=== PATIENT | female | born 1955 | race Caucasian/White ===

== ENCOUNTER 2024-01-07 00:31 | Emergency (ER) | payer OTHER, MEDICARE ==
--- OUTSIDE RECORDS SUMMARY | 2024-01-07 00:34 | XMS REPORT | Continuity of Care Document ---
Author Name Unknown Address [address] [place] [address] th[address] Address [address] [facility] 1 [address] [place] [address] Care Team Providers Care Frame Builder Name Role Phone [email or web address] Attending Clinician Unavail able [email or web address] Admitting Clinician Unavail able Payers Payer Name Policy Type Policy Number Effective Date Expirati on Date Source [place]IC[place]: [employer] [id number] 2018 00:00:00 [employer] [id number] 2018 00:00:00 Encounters Start Date/Time End Date/Time Encounter Type Admission Type Attending Clinicians Care Facility Care Department Encounter ID Source 2023-05-18 00:00:00 2023-05-18 00:00:00 Outpatient [email or web address] [facility] [id number] [facility]
[2024-01-07] MEDS ORDERED: CIPROFLOXACIN HCL 500 MG TAB ONE (01:08)
[2024-01-07] MEDS ORDERED: PHENAZOPYRIDINE 100MG TAB PO ONE (01:08)
[2024-01-07] MEDS ORDERED: CEFTRIAXONE 1000 MG/VIAL ONE (01:08)
[2024-01-07] MEDS ORDERED: LIDOCAINE 1% 20 ML MDV ONE (01:09)
--- NOTE | 2024-01-07 01:41 | EDPHYS ---
Physician Documentation [facility] Name: Darline Mclaughlin Age: 68 yrs Sex: Female : 1955 Arrival Date: 01/07/2024 Time: 00:31 Bed 13 Private MD: Juan Aranda HPI: 01/06 01:28 This 68 yrs old Female presents to ER via Ambulatory with complaints of rafita POSSIBLE UTI. 01:28 The patient presents with urinary symptoms, dysuria, frequency, hematuria, urgency. rafita Onset: The symptoms/episode began/occurred 2 day(s) ago. Modifying factors: The symptoms are alleviated by nothing, the symptoms are aggravated by urinating. Associated signs and symptoms: The patient has no apparent associated signs or symptoms. Severity of symptoms: At their worst the symptoms were mild, in the emergency department the symptoms are unchanged. The patient is sexually active, reportedly has a single partner. The patient has experienced similar episodes in the past, several times. Historical: - Allergies: 00:50 No Known Allergies; lg3 - Home Meds: 00:50 levothyroxine oral [Active]; Nexium Oral [Active]; rosuvastatin oral [Active]; Plavix lg3 Oral [Active]; - PMHx: 00:50 Hypothyroidism; TIA; high cholesterol; lg3 - PSHx: 00:50 Thyroidectomy; Total abdominal hysterectomy; lg3 - Immunization history:: Adult Immunizations up to date. - Infectious Disease History:: Denies. - Social history:: Smoking status: Patient denies any tobacco usage or history of. Patient uses alcohol, occasionally. - Family history:: not pertinent. ROS: 01:28 Constitutional: Negative for fever, chills, and weight loss, Eyes: Negative for injury, rafita pain, redness, and discharge, ENT: Negative for injury, pain, and discharge, Neck: Negative for injury, pain, and swelling, Cardiovascular: Negative for chest pain, palpitations, and edema, Respiratory: Negative for shortness of breath, cough, wheezing, and pleuritic chest pain, Back: Negative for injury and pain, : Negative for injury, bleeding, discharge, and swelling, MS/Extremity: Negative for injury and deformity, Skin: Negative for injury, rash, and discoloration, Neuro: Negative for headache, weakness, numbness, tingling, and seizure, Psych: Negative for depression, anxiety, suicide ideation, homicidal ideation, and hallucinations, Allergy/Immunology: Negative for hives, rash, and allergies, Endocrine: Negative for neck swelling, polydipsia, polyuria, polyphagia, and marked weight changes, Hematologic/Lymphatic: Negative for swollen nodes, abnormal bleeding, and unusual bruising, Abdomen/GI: Negative for abdominal pain, Back: Negative for injury or acute deformity, decreased range of motion, pain at rest, pain with movement, : Positive for urinary symptoms, flank pain, urinary frequency, small amounts, burning with urination, Exam: Constitutional: This is a well developed, well nourished patient who is awake, alert, rafita and in no acute distress. Head/Face: Normocephalic, atraumatic. Eyes: Pupils equal round and reactive to light, extra-ocular motions intact. Lids and lashes normal. Conjunctiva and sclera are non-icteric and not injected. Cornea within normal limits. Periorbital areas with no swelling, redness, or edema. ENT: Nares patent. No nasal discharge, no septal abnormalities noted. Tympanic membranes are normal and external auditory canals are clear. Oropharynx with no redness, swelling, or masses, exudates, or evidence of obstruction, uvula midline. Mucous membranes moist. Neck: Trachea midline, no thyromegaly or masses palpated, and no cervical lymphadenopathy. Supple, full range of motion without nuchal rigidity, or vertebral point tenderness. No Meningismus. Chest/axilla: Normal chest wall appearance and motion. Nontender with no deformity. No lesions are appreciated. Cardiovascular: Regular rate and rhythm with a normal S1 and S2. No gallops, murmurs, or rubs. Normal PMI, no JVD. No pulse deficits. Respiratory: Lungs have equal breath sounds bilaterally, clear to auscultation and percussion. No rales, rhonchi or wheezes noted. No increased work of breathing, no retractions or nasal flaring. Abdomen/GI: Soft, non-tender, with normal bowel sounds. No distension or tympany. No guarding or rebound. No evidence of tenderness throughout. Back: No spinal tenderness. No costovertebral tenderness. Full range of motion. Skin: Warm, dry with normal turgor. Normal color with no rashes, no lesions, and no evidence of cellulitis. MS/ Extremity: Pulses equal, no cyanosis. Neurovascular intact. Full, normal range of motion. Neuro: Awake and alert, GCS 15, oriented to person, place, time, and situation. Cranial nerves II-XII grossly intact. Motor strength 5/5 in all extremities. Sensory grossly intact. Cerebellar exam normal. Normal gait. Psych: Awake, alert, with orientation to person, place and time. Behavior, mood, and affect are within normal limits. Vital Signs: 00:45 BP 163 / 69; Pulse 78; Resp 16; Temp 99.3; Pulse Ox 100% on R/A; Weight 58.51 kg; lc8 Height 5 ft. 3 in. ; 02:00 BP 153 / 74; Pulse 78; Resp 17; Pulse Ox 100% ; lc8 00:45 Body Mass Index 22.85 (58.51 kg, 160.02 cm) 8 MDM: 00:[address] [facility] 01:35 Differential diagnosis: kidney stone, nonspecific abdominal pain, urinary tract rafita infection. Data reviewed: vital signs, nurses notes, lab test result(s). Consideration of Admission/Observation Escalation of care including admission/observation considered. I considered the following discharge prescriptions or medication management in the emergency department Medications were administered in the Emergency Department. See MAR. Test considered but Not performed: Labs: no labs , no ct. Historians other than the Patient: Spouse/Significant Other: well informed. Care significantly affected by the following chronic conditions: tia, high chlesterol, hypothyroid. Counseling: I had a detailed discussion with the patient and/or guardian regarding the historical points, exam findings, and any diagnostic results supporting the discharge/admit diagnosis, lab results, the need for outpatient follow up, for definitive care, a family practitioner. 01/06 00:48 Order name: Urinalysis w/ reflexes; Complete Time: 02:09 rafita 01/06 00:48 Order name: Urine Culture rafita Administered Medications: 01:16 Drug: Ciprofloxacin PO 500 mg PO once Route: PO; 8 01:45 Follow up: Response: No adverse reaction [facility] :17 Drug: Rocephin (cefTRIAXone) IM 1 grams IM once Route: IM; Site: Ventrogluteal RIGHT; 8 :45 Follow up: Response: No adverse reaction lc8 01:17 Drug: Phenazopyridine PO 200 mg PO once Route: PO; lc8 01:45 Follow up: Response: No adverse reaction lc8 01:53 Drug: Cefdinir PO 300 mg PO once Route: PO; lc8 01:57 Follow up: Response: No adverse reaction lc8 Disposition Summary: 01/07/24 01:40 Discharge Ordered Notes: Location: Home [facility] Problem: new rafita Symptoms: have improved rafita Condition: Stable rafita Diagnosis - UTI/ Urinary tract infection, site not specified rafita - Dysuria rafita Followup: rafita - With: Private Physician - When: 2 - 3 days - Reason: Recheck today's complaints, Continuance of care, Re-evaluation by your physician Discharge Instructions: - Discharge Summary Sheet rafita - Dysuria rafita - Urinary Tract Infection, Adult rafita - Urinary Tract Infection, Adult, [id number] [facility] Forms: - Medication Reconciliation Form rafita - Antibiotic Education rafita - Prescription Opioid Use rafita - Patient Portal Instructions rafita - Leadership Thank You Letter [facility] Prescriptions: - cefdinir 300 mg Oral capsule - take 1 capsule ORAL route 2 times per day; 14 capsule; Refills: 0, Product rafita Selection Permitted - Cipro 250 mg Oral tablet - take 1 tablet ORAL route every 12 hours; 10 tablet; Refills: 0, Product rafita Selection Permitted - Pyridium 200 mg Oral Tablet - take 1 tablet ORAL route every 8 hours for 3 days; 9 tablet; Refills: 0, [facility] Product Selection Permitted Signatures: Dispatcher [employer] EDJuan Ibrahim MD MD cha Able, Lacie, RN RN lg3 Cassandra Mcclellan RN RN lc8 Corrections: (The following items were deleted from the chart) 00:48 00:48 Urinalysis+U.LAB.BRZ ordered. EDMS EDMS 00:48 00:48 Urine Culture+BA.LAB.BRZ ordered. EDMS EDMS
--- NOTE | 2024-01-07 01:41 | ER ---
Nurse's Notes [facility] Name: Darline Mclaughlin Age: 68 yrs Sex: Female : 1955 Arrival Date: 01/07/2024 Time: 00:31 Bed 13 Private MD: Diagnosis: UTI/ Urinary tract infection, site not specified;Dysuria Presentation: 01/06 00:45 Chief complaint: Patient states: UTI like symptoms X1 day. burning/frequency. lg3 Coronavirus screen: Client denies travel out of the [place] in the last 14 days. At this time, the client does not indicate any symptoms associated with coronavirus-19. Ebola Screen: No symptoms or risks identified at this time. Risk Assessment: Do you want to hurt yourself or someone else? Patient reports no desire to harm self or others. Onset of symptoms was January 06, 2024. 00:45 Method Of Arrival: Ambulatory lg3 00:45 Acuity: KEITH 4 lg3 00:45 Initial Sepsis Screen: Does the patient meet any 2 criteria? No. Patient's initial lc8 sepsis screen is negative. Does the patient have a suspected source of infection? No. Patient's initial sepsis screen is negative. Triage Assessment: 00:50 General: Appears in no apparent distress. comfortable, Behavior is calm, cooperative. lg3 Pain: Denies pain. EENT: No deficits noted. No signs and/or symptoms were reported regarding the EENT system. Neuro: No deficits noted. [place] Agitation-Sedation Scale (RASS): 0 - Alert and Calm Level of Consciousness is awake, alert, obeys commands, Oriented to person, place, time, situation. Cardiovascular: No deficits noted. Denies chest pain, shortness of breath, Capillary refill < 3 seconds Clubbing of nail beds is absent JVD is absent Patient's skin is warm and dry. Respiratory: No deficits noted. Airway is patent Respiratory effort is even, unlabored, Respiratory pattern is regular, symmetrical. GI: No deficits noted. No signs and/or symptoms were reported involving the gastrointestinal system. : Reports burning with urination, urgency, urinary frequency. Derm: No deficits noted. No signs and/or symptoms reported regarding the dermatologic system. Skin is intact, is healthy with good turgor, Skin is dry, Skin is normal, Skin temperature is warm. Musculoskeletal: No deficits noted. No signs and/or symptoms reported regarding the musculoskeletal system. Circulation, motion, and sensation intact. Range of motion: intact in all extremities. Historical: - Allergies: 00:50 No Known Allergies; lg3 - Home Meds: 00:50 levothyroxine oral [Active]; Nexium Oral [Active]; rosuvastatin oral [Active]; Plavix lg3 Oral [Active]; - PMHx: 00:50 Hypothyroidism; TIA; high cholesterol; lg3 - PSHx: 00:50 Thyroidectomy; Total abdominal hysterectomy; lg3 - Immunization history:: Adult Immunizations up to date. - Infectious Disease History:: Denies. - Social history:: Smoking status: Patient denies any tobacco usage or history of. Patient uses alcohol, occasionally. - Family history:: not pertinent. Screenin:45 [facility] ED Fall Risk Assessment (Adult) History of falling in the last 3 months, lc8 including since admission No falls in past 3 months (0 pts) Confusion or Disorientation No (0 pts) Intoxicated or Sedated No (0 pts) Impaired Gait No (0 pts) Mobility Assist Device Used No (0 pt) Altered Elimination No (0 pt) Score/Fall Risk Level 0 - 2 = Low Risk Oriented to surroundings, Maintained a safe environment, Hourly rounding (assess needs \T\ fall precautionary measures) done. 00:45 Abuse screen: Denies threats or abuse. Denies injuries from another. Nutritional lc8 screening: No deficits noted. Tuberculosis screening: No symptoms or risk factors identified. Assessment: 00:50 General: Appears in no apparent distress. comfortable, Behavior is calm, cooperative. lc8 00:50 Pain: Complains of pain in pelvis. Neuro: No deficits noted. Level of Consciousness is lc8 awake, alert, obeys commands, Oriented to person, place, time, situation. Cardiovascular: Capillary refill < 3 seconds Patient's skin is warm and dry. Respiratory: Airway is patent Respiratory effort is even, unlabored, Respiratory pattern is regular, symmetrical. GI: No deficits noted. : Reports burning with urination, pain urgency, urinary frequency. EENT: No signs and/or symptoms were reported regarding the EENT system. EENT: No signs and/or symptoms were reported regarding the EENT system. Derm: No signs and/or symptoms reported regarding the dermatologic system. Vital Signs: 00:45 BP 163 / 69; Pulse 78; Resp 16; Temp 99.3; Pulse Ox 100% on R/A; Weight 58.51 kg; lc8 Height 5 ft. 3 in. ; 02:00 BP 153 / 74; Pulse 78; Resp 17; Pulse Ox 100% ; lc8 00:45 Body Mass Index 22.85 (58.51 kg, 160.02 cm) [facility] ED Course: 00:34 Patient arrived in ED. jj6 00:43 Juan Wisdom MD is Attending Physician. rafita 00:45 Patient has correct armband on for positive identification. Bed in low position. Call lc8 light in reach. Side rails up X 1. Adult w/ patient. Provided Education on: medication. 00:45 No provider procedures requiring assistance completed. lc8 00:45 Patient did not have IV access during this emergency room visit. 8 00:50 Triage completed. lg3 00:50 Arm band placed on right wrist. lg3 00:57 Cassandra Mcclellan RN is Primary Nurse. 8 Administered Medications: 01:16 Drug: Ciprofloxacin PO 500 mg PO once Route: PO; 8 01:45 Follow up: Response: No adverse reaction 8 01:17 Drug: Rocephin (cefTRIAXone) IM 1 grams IM once Route: IM; Site: Ventrogluteal RIGHT; 8 01:45 Follow up: Response: No adverse reaction 8 01:17 Drug: Phenazopyridine PO 200 mg PO once Route: PO; 8 01:45 Follow up: Response: No adverse reaction 8 01:53 Drug: Cefdinir PO 300 mg PO once Route: PO; 8 01:57 Follow up: Response: No adverse reaction [facility] Medication: 00:45 VIS not applicable for this client. 8 Outcome: 01:40 Discharge ordered by . rafita 02:13 Discharged to home ambulatory, with family, [facility] 02:13 Condition: stable 02:13 Discharge instructions given to patient, Instructed on discharge instructions, follow up and referral plans. Demonstrated understanding of instructions, follow-up care, medications, Prescriptions given X 3, 02:19 Patient left the ED. 8 Signatures: Juan Wisdom MD MD cha Able, Lacie RN RN 3 Nafisa De Leon j Eleuterio, LaBrisha, RN RN lc8
[2024-01-07] MEDS ORDERED: CEFDINIR 300 MG CAP PO ONE (01:48)
[2024-01-07 01:58] LABS: Sqamous Epithelial <5 /HPF (None Seen); Urine Bacteria None Seen /HPF (<20); Urine Bilirubin NEGATIVE (Negative); Urine Blood 2+ (Negative); Urine Clarity Extremely Turbid (Clear); Urine Color Colorless (Yellow); Urine Culture Reflex Order REFLEXED; Urine Glucose NEGATIVE (Negative); Urine Ketones NEGATIVE (Negative); Urine Microscopic Reflex YN ORDER UMIC; Urine Nitrite NEGATIVE (Negative); Urine Protein 1+ (Negative); Urine RBC >50 /HPF (None Seen); Urine Urobilinogen Normal (Normal); Urine WBC >50 /HPF (<5); Urine WBC Clump Rare /HPF (None Seen)
[2024-01-07 02:55] VITALS: BP 163/69; TEMP 99.3; O2SAT 100
== END 2024-01-07 02:19 | disposition home or self-care (01) ==
LOC: ER 00:31
DX: N39.0 Urinary tract infection, site not specified (principal)
CPT/HCPCS: 87088; 81001; 87086; J2001; J0696; 87077; 87186; 96372; 99284